=== PATIENT | male | born 1985 | race Caucasian/White ===

== ENCOUNTER → 2016-12-09 | Outpatient (CLI) | payer BC, OTHER ==
[2016-12-09 10:11] LABS: BUN/CREATININE RATIO 19 (0-10)
== END ==
LOC: LAB 08:25
PROVIDERS: Emergency Medicine
DX: D69.6 Thrombocytopenia, unspecified (principal); E11.69 Type 2 diabetes mellitus with other specified complication; G60.3 Idiopathic progressive neuropathy; I10 Essential (primary) hypertension; J06.9 Acute upper respiratory infection, unspecified; J20.9 Acute bronchitis, unspecified; M10.00 Idiopathic gout, unspecified site; M1A.9XX0 Chronic gout, unspecified, without tophus (tophi)
CPT/HCPCS: 36415; 80053; 80061; 83036; 83704; 84550

== ENCOUNTER → 2017-01-11 | Outpatient (CLI) | payer BC, OTHER ==
[2017-01-11 15:35] LABS: BUN/CREATININE RATIO 16 (0-10)
== END ==
LOC: LAB 14:41
PROVIDERS: Internal Medicine Nephrology
DX: R80.9 Proteinuria, unspecified (principal)
CPT/HCPCS: 36415; 80053; 82043; 82570; 84156

== ENCOUNTER → 2020-12-12 | Outpatient (CLI) | payer OTHER | LOC: EMI 14:36 | DX: M50.222 Other cervical disc displacement at C5-C6 level (principal) | CPT/HCPCS: 72141 ==

== ENCOUNTER → 2021-03-24 | Outpatient (CLI) | payer OTHER | LOC: EMI 15:41 | DX: M54.16 Radiculopathy, lumbar region (principal); M51.24 Other intervertebral disc displacement, thoracic region | CPT/HCPCS: 72146; 72148 ==